=== PATIENT | female | born 1975 | race Caucasian/White ===

== ENCOUNTER 2020-03-05 10:07 | Emergency (ER) | payer SELFPAY ==
[2020-03-05 10:51] LABS: Absolute Lymphocytes (CBC) 1.7 K/uL (0.7-4.9); Basophils % 0.8 % (0-1.3); Hematocrit 43.4 % (36.0-45.0); MPV 8.4 fL (7.6-11.3); RBC Red Blood Cell Count 5.16 M/uL (3.86-4.86)
[2020-03-05] MEDS ORDERED: WATER FOR INJ,STERILE 10 ML ONE (10:54)
[2020-03-05] MEDS ORDERED: ZIPRASIDONE MESYLA 20 MG/VIAL IM ONE (10:54)
--- NOTE | 2020-03-05 11:15 | ER ---
Nurse's Notes [facility] Name: Tia Tabor Age: 44 yrs Sex: Female : 1975 Arrival Date: 03/05/2020 Time: 10:12 Bed 8 Private MD: Diagnosis: Chest pain, unspecified;Psychotic disorder with delusions due to known physiological condition;Abuse of non-psychoactive substances Presentation: 03/05 10:16 Chief complaint: EMS states: Pt arrested for PI by [place] [employer], c/o chest pain to police who called EMS, pt agitated but allowed EMS to obtain vitals, BP 152/89, HR 77, Spo2 95%, upon arrival to ED pt remains agitated, awake and alert but rambling incoherently, refusing vitals or evaluation by ED staff. Coronavirus screen: Patient denies a cough. Patient denies shortness of breath or difficulty breathing. Patient denies measured and/or subjective temperature greater than 100.4F prior to today's visit. Patient denies travel on a cruise ship or to a country the [facility] currently lists as an affected area. Patient denies contact with known and/or suspected case of COVID-19. Ebola Screen: No symptoms or risks identified at this time. Initial Sepsis Screen: Does the patient meet any 2 criteria? No. Patient's initial sepsis screen is negative. Does the patient have a suspected source of infection? No. Patient's initial sepsis screen is negative. Risk Assessment: Do you want to hurt yourself or someone else? Unable to obtain. Onset of symptoms was March 05, 2020. 10:16 Method Of Arrival: EMS: [facility] ph 10:16 Acuity: BRITTANY 3 ph 10:32 Acuity: BRITTANY 2 ph Historical: - Allergies: 10:23 Unable to obtain; ph - Home Meds: 10:23 Unable to obtain [Active]; ph - PMHx: 10:23 Unable to obtain; ph - PSHx: 10:23 Unable to obtain; ph - Immunization history:: Adult Immunizations unknown. - Social history:: Smoking status: Patient reports the use of cigarette tobacco products, smokes one pack cigarettes per day. - Family history:: not pertinent. Screenin:15 Abuse screen: Denies threats or abuse. Denies injuries from another. Nutritional ph screening: No deficits noted. Tuberculosis screening: No symptoms or risk factors identified. Fall Risk None identified. Assessment: 10:30 Reassessment: Pt continues to refuse treatment or evaluation, began screaming at ph officer at bedside, maritza toledo called overhead. 10:43 Reassessment: Pt now agreeing to vitals and blood draw, [place] and [place] [employer] at bedside. 11:05 Reassessment: Pt agitated, yelling, " Fuck this place, I'm a grown ass women and you are treating me like a child. I've had chest pain for 4 god damn hours and nobody cares, I want to get the fuck out of here, you can't make me stay." Explained to pt that we were trying to evaluate her chest pain complaint w/ blood work and EKG, pt refusing EKG at this time, states, " Fuck you bitch let me out of here." PD no longer at bedside, pt left department w/ no IV in place. Vital Signs: 10:16 ph 10:42 BP 157 / 110; Pulse 104; Resp 21; Pulse Ox 100% on R/A; ph 10:16 pt refusing vitals ph ED Course: 10:12 Patient arrived in ED. ph 10:12 Delvin Gardiner MD is Attending Physician. ceferino 10:16 Lori Bartlett, CINTHIA is Primary Nurse. ph 10:19 Triage completed. ph 11:15 Cleveland Alves MD is Referral Physician. [facility] Administered Medications: 10:50 Drug: Geodon 20 mg Route: IM; Site: right deltoid; ph 11:16 Follow up: Response: No adverse reaction ph 11:16 Not Given (Patient Refused): NS 0.9% 1000 ml IV at 1 bolus Per protocol; 1000 mL bolus ph 11:16 Not Given (Patient Refused): Ativan 2 mg IVP once ph 11:17 Not Given (Patient ): Aspirin 81 mg PO once ph Outcome: 11:17 Patient left the ED. ph 11:17 Eloped from patient exam room, after seeing physician Time discovered patient gone: ph March 05, 2020 at 11:15 Signatures: Delvin Gardiner MD MD cha Hall, Patricia, RN RN ph Corrections: (The following items were deleted from the chart) 10:43 10:30 Reassessment: Pt now agreeing to vitals and blood draw, Jorje Lira and [place] ph PD at bedside ph
--- NOTE | 2020-03-05 11:15 | EDPHYS ---
Physician Documentation [facility] Name: Tia Tabor Age: 44 yrs Sex: Female : 1975 Arrival Date: 03/05/2020 Time: 10:12 Bed 8 Private MD: ED Physician Delvin Gardiner HPI: 03/05 10:14 This 44 yrs old Female presents to ER via Unassigned with complaints of Chest ceferino Pain. 10:14 The patient or guardian reports chest pain that is located primarily in the substernal ceferino area, epigastric area. Onset: just prior to arrival, this morning. The pain does not radiate. Associated signs and symptoms: Pertinent positives: None. Pertinent negatives: None. The chest pain is described as a pressure. Duration: The patient or guardian reports multiple episodes, with no pattern. Modifying factors: The symptoms are alleviated by nothing. the symptoms are aggravated by nothing. Severity of pain: At its worst the pain was moderate in the emergency department the pain is unchanged. It is unknown whether or not the patient has had similar symptoms in the past. Historical: - Allergies: 10:23 Unable to obtain; ph - Home Meds: 10:23 Unable to obtain [Active]; ph - PMHx: 10:23 Unable to obtain; ph - PSHx: 10:23 Unable to obtain; ph - Immunization history:: Adult Immunizations unknown. - Social history:: Smoking status: Patient reports the use of cigarette tobacco products, smokes one pack cigarettes per day. - Family history:: not pertinent. ROS: 10:15 Eyes: Negative for injury, pain, redness, and discharge, ENT: Negative for injury, ceferino pain, and discharge, Neck: Negative for injury, pain, and swelling, Respiratory: Negative for shortness of breath, cough, wheezing, and pleuritic chest pain, Abdomen/GI: Negative for abdominal pain, nausea, vomiting, diarrhea, and constipation, Back: Negative for injury and pain, : Negative for injury, bleeding, discharge, and swelling, MS/Extremity: Negative for injury and deformity, Skin: Negative for injury, rash, and discoloration, Psych: Negative for depression, anxiety, suicide ideation, homicidal ideation, and hallucinations, Allergy/Immunology: Negative for hives, rash, and allergies, Endocrine: Negative for neck swelling, polydipsia, polyuria, polyphagia, and marked weight changes, Hematologic/Lymphatic: Negative for swollen nodes, abnormal bleeding, and unusual bruising. 10:15 Constitutional: Positive for body aches. 10:15 Cardiovascular: Positive for chest pain. 10:15 Psych: Positive for anxiety, pychosis, pt denies psychiatric hx. Exam: 10:15 Constitutional: This is a well developed, well nourished patient who is awake, alert, ceferino and in no acute distress. Head/Face: Normocephalic, atraumatic. Eyes: Pupils equal round and reactive to light, extra-ocular motions intact. Lids and lashes normal. Conjunctiva and sclera are non-icteric and not injected. Cornea within normal limits. Periorbital areas with no swelling, redness, or edema. ENT: Nares patent. No nasal discharge, no septal abnormalities noted. Tympanic membranes are normal and external auditory canals are clear. Oropharynx with no redness, swelling, or masses, exudates, or evidence of obstruction, uvula midline. Mucous membranes moist. Neck: Trachea midline, no thyromegaly or masses palpated, and no cervical lymphadenopathy. Supple, full range of motion without nuchal rigidity, or vertebral point tenderness. No Meningismus. Chest/axilla: Normal chest wall appearance and motion. Nontender with no deformity. No lesions are appreciated. Respiratory: Lungs have equal breath sounds bilaterally, clear to auscultation and percussion. No rales, rhonchi or wheezes noted. No increased work of breathing, no retractions or nasal flaring. Abdomen/GI: Soft, non-tender, with normal bowel sounds. No distension or tympany. No guarding or rebound. No evidence of tenderness throughout. Back: No spinal tenderness. No costovertebral tenderness. Full range of motion. Pelvic Exam: Normal external genitalia. Speculum exam with closed cervical os, no discharge or bleeding noted. Bimanual exam with normal adnexa, no adnexal or cervical motion tenderness. Normal uterus. Female : Normal external genitalia. Skin: Warm, dry with normal turgor. Normal color with no rashes, no lesions, and no evidence of cellulitis. MS/ Extremity: Pulses equal, no cyanosis. Neurovascular intact. Full, normal range of motion. Neuro: Awake and alert, GCS 15, oriented to person, place, time, and situation. Cranial nerves II-XII grossly intact. Motor strength 5/5 in all extremities. Sensory grossly intact. Cerebellar exam normal. Normal gait. Psych: Awake, alert, with orientation to person, place and time. Behavior, mood, and affect are within normal limits. 10:15 Cardiovascular: Rate: normal, Rhythm: regular, Pulses: Pulses are 4+ in bilateral radial, brachial, femoral, popliteal, posterior tibial and and dorsalis pedis arteries.. Heart sounds: normal, Edema: is not appreciated, JVD: is not appreciated. 10:15 Musculoskeletal/extremity: ROM: no acute changes, Circulation is intact in all extremities. Sensation intact. Compartment Syndrome exam of affected extremity: is normal. DVT Exam: no pain, no swelling, no tenderness, negative Homans' sign noted on exam, no appreciated bluish discoloration, no erythema, no increased warmth. Vital Signs: 10:16 ph 10:42 BP 157 / 110; Pulse 104; Resp 21; Pulse Ox 100% on R/A; ph 10:16 pt refusing vitals ph MDM: 10:13 Patient medically screened. [facility] 10:20 Data reviewed: vital signs, nurses notes, lab test result(s), EKG, radiologic studies, [facility] plain films. 11:10 Differential diagnosis: abnormal EKG, acute myocardial infarction, anxiety, coronary ceferino artery disease pleurisy, pulmonary embolus, stable angina, unstable angina. HEART Score: History: Slightly Suspicious (0), ECG: Age: < or = 45 years (0), Risk Factors: > or = 3 Risk factors for atherosclerotic disease (2), [Hypertension] [Active Smoker] [+ Family HX]. The patient was not given aspirin in the Emergency Department. Patient reports taking aspirin within the past 24 hours. Data interpreted: panel monitor: rate is 104 beats/min, Pulse oximetry: on room air is 100 %. ED course: pt was uncooperative the entire visit, refused treatment, and left ama, before dispo. 03/05 10:14 Order name: Basic Metabolic Panel [facility] 03/05 10:14 Order name: CBC with Diff; Complete Time: 11:08 [facility] 03/05 10:14 Order name: LFT's [facility] 03/05 10:14 Order name: Magnesium [facility] 03/05 10:14 Order name: Troponin (emerg Dept Use Only) [facility] 03/05 10:14 Order name: Acetaminophen [facility] 03/05 10:14 Order name: ETOH Level [facility] 03/05 10:14 Order name: Salicylate [facility] 03/05 10:14 Order name: EKG; Complete Time: 10:15 [facility] 03/05 10:14 Order name: Labs collected and sent; Complete Time: 10:50 [facility] 03/05 10:14 Order name: O2 Per Protocol; Complete Time: 10:50 [facility] 03/05 10:14 Order name: O2 Sat Monitoring; Complete Time: 10:50 [facility] Administered Medications: 10:50 Drug: Geodon 20 mg Route: IM; Site: right deltoid; ph 11:16 Follow up: Response: No adverse reaction ph 11:16 Not Given (Patient Refused): NS 0.9% 1000 ml IV at 1 bolus Per protocol; 1000 mL bolus ph 11:16 Not Given (Patient Refused): Ativan 2 mg IVP once ph 11:17 Not Given (Patient ): Aspirin 81 mg PO once ph Disposition: 03/05/20 11:15 Patient left the facility after being seen by provider. Preliminary diagnosis are Chest pain, unspecified, Psychotic disorder with delusions due to known physiological condition, Abuse of non-psychoactive substances. - Patient left due to unknown. - Condition is Undetermined. - Problem is new. - Symptoms have improved. Signatures: Dispatcher [employer] EDDelvin Salamanca MD MD cha Hall, Patricia RN RN ph Corrections: (The following items were deleted from the chart) 11:15 11:15 03/05/2020 11:15 Patient left the facility after being seen by provider. [facility] Preliminary diagnosis is Chest pain, unspecified; Psychotic disorder with delusions due to known physiological condition; Abuse of non-psychoactive substances. Reason stated they are leaving due to unknown. Condition is Undetermined. Problem is new. Symptoms have improved. [facility] 11:17 11:15 03/05/2020 11:15 Patient left the facility after being seen by provider. Preliminary diagnosis is Chest pain, unspecified; Psychotic disorder with delusions due to known physiological condition; Abuse of non-psychoactive substances. Reason stated they are leaving due to unknown. Condition is Undetermined. Problem is new. Symptoms have improved. [facility]
[2020-03-05 12:14] LABS: ALT/SGPT 22 U/L (12-78); AST/SGOT 17 U/L (15-37); Albumin 4.1 g/dL (3.4-5.0); Alkaline Phosphatase 67 U/L (45-117); BUN Blood Urea Nitrogen 14 mg/dL (7-18); Bicarbonate 26 mmol/L (21-32); Bilirubin Direct 0.1 mg/dL (0-0.2); Bilirubin Total 0.8 mg/dL (0.2-1.0); Glucose Level 93 mg/dL (74-106); Magnesium 2.2 mg/dL (1.8-2.4); Protein, Total 8.1 g/dL (6.4-8.2); Sodium Level 137 mmol/L (136-145); Troponin (Emerg Dept Use Only) < 0.02 ng/mL (0.0-0.045)
== END 2020-03-05 11:17 | disposition left against medical advice (07) ==
LOC: ER 10:07
DX: R07.9 Chest pain, unspecified (principal); F28 Other psychotic disorder not due to a substance or known physiological condition; F22 Delusional disorders; F55.8 Abuse of other non-psychoactive substances
CPT/HCPCS: 36415; 80048; 80076; 80320; 80329; 83735; 84484; 85025; 93005; 96372; 99283; J3486